=== PATIENT | male | born 1955 | race Hispanic/Latino ===

== ENCOUNTER 2019-04-19 08:35 | Observation (INO) | payer MEDICARE ==
--- NOTE | 2019-04-19 10:05 | Emergency Department Report ---
ED Chest Pain HPI - General Chief Complaint: Chest Pain Stated Complaint: LEG CRAMPS Source: patient, EMS, old records reviewed Mode of arrival: Stretcher Limitations: Other - History of Present Illness Initial Comments: 64-year-old male the past medical history of hypertension, stable angina, thyroid disease, and former smoker presents to the hospital complains of intermittent chest pain and leg cramps. Patient states symptoms since yesterday. He is having intermittent sternal pressure without aggravating or alleviating factors. Mild associated shortness of breath and nausea without vomiting. Patient also have entering cramps to bilateral legs also without aggravating or alleviating factors. Overall pain is rated 7/10 in intensity. Chest pain, leg cramps, and diaphoresis typically occur altogether. Patient reports a history of stable angina the states his last Cardiac workup with 10-20 years ago. He denies stents or CABG. He takes aspirin intermittently. Patient was just admitted to [facility] this morning after medical clearance from [facility] for the same physical complaints (leg cramps, sweating, dizzy since new year's). [facility] medical record provided by [facility] reviewed. Results include: Apr 16: trop neg, cr 1.38, ddimer pt had an elevated ddimer 04/18 CT angio chest that was neg for Pulmonary embolism or airspace diseae. + gallstones Patient is a [facility] for depression and suicidal ideation or plan to hang himself. Sitter at bedside. - Related Data Allergies Allergy/AdvReac Type Severity Reaction Status Date / Time codeine Allergy Rash Verified 04/19/19 12:48 Penicillins Allergy Rash Verified 04/19/19 12:48 Heart Score - HEART Score History: Moderately suspicious EKG: Non-specific Age: 45-65 Risk factors: > 3 risk factors or hx of atherosclerotic disease Troponin: < normal limit HEART Score: 5 ED Review of Systems ROS: Stated complaint: LEG CRAMPS Other details as noted in HPI Comment: All other systems reviewed and negative ED Past Medical Hx - Past Medical History Previous Medical History?: Yes Hx Hypertension: Yes Hx Psychiatric Treatment: Yes (depression, inpatient admission for SI) Hx COPD: Yes Additional medical history: Stable Angina. thryoid dz, erectile dysfucntion - Surgical History Past Surgical History?: Yes Additional Surgical History: B/L LE rods. L foot partial amputation - Social History Smoking Status: Former Smoker ED Physical Exam - General Limitations: Other - Other Other exam information: General: No acute distress Head: Atraumatic Eyes: normal appearance ENT: Moist mucous membranes Neck: Normal appearance, no midline tenderness Chest: Clear to auscultation bilaterally, mild upper mid chest wall tenderness CV: Regular rate and rhythm Abdomen: Soft, normal bowel sounds, nontender, nondistended, no rebound or guarding Back: Normal inspection Extremity: Normal inspection, full range of motion, no leg edema or asymmetry Neuro: Alert O x 3, no facial asymmetry, speech clear, no gross motor sensory deficit Psych: Appropriate behavior Skin: No rash ED Course Vital Signs 04/19/19 04/19/19 04/19/19 09:29 09:31 09:34 Temperature 98.4 F Pulse Rate 84 82 Respiratory 14 16 Rate Blood Pressure 142/80 142/80 Blood Pressure [Right] O2 Sat by Pulse 100 95 98 Oximetry 04/19/19 04/19/19 04/19/19 09:45 10:00 10:15 Temperature Pulse Rate 79 79 75 Respiratory 10 L 14 11 L Rate Blood Pressure 142/80 146/89 146/89 Blood Pressure 146/89 [Right] O2 Sat by Pulse 98 96 97 Oximetry 04/19/19 04/19/19 04/19/19 10:31 10:45 11:00 Temperature Pulse Rate Respiratory Rate Blood Pressure 146/89 146/89 146/89 Blood Pressure [Right] O2 Sat by Pulse 97 96 Oximetry 04/19/19 04/19/19 04/19/19 11:19 11:31 11:45 Temperature Pulse Rate 78 77 Respiratory 17 9 L Rate Blood Pressure 146/89 147/93 147/93 Blood Pressure 147/93 [Right] O2 Sat by Pulse 70 L 98 97 Oximetry 04/19/19 04/19/19 04/19/19 12:01 12:15 12:31 Temperature Pulse Rate 79 74 Respiratory 18 29 H Rate Blood Pressure 159/90 159/90 159/90 Blood Pressure [Right] O2 Sat by Pulse 96 98 96 Oximetry 04/19/19 04/19/19 04/19/19 12:45 13:00 13:15 Temperature Pulse Rate 78 75 82 Respiratory 20 22 15 Rate Blood Pressure 159/90 161/95 159/90 Blood Pressure [Right] O2 Sat by Pulse 98 96 96 Oximetry 04/19/19 04/19/19 13:31 13:45 Temperature Pulse Rate 85 80 Respiratory 13 11 L Rate Blood Pressure 159/90 159/90 Blood Pressure [Right] O2 Sat by Pulse 95 97 Oximetry - Reevaluation(s) Reevaluation #1: 04/19/19 12:38 pt had an episode in ed of diaphoresis. Fasciculations has cramps noted to leg muscles and hands. Patient also complained of generalized pain including chest pain. Hospitalist also at the bedside. Ativan 0.5 mg ordered. Repeat EKG still normal sinus without ST elevation. 04/19/19 13:57 ativan improved pt's muscle sx and diaphoresis MICHAEL score - Michael Score Age > 65: (0) No Aspirin use within the Past 7 Days: (0) No 3 or more CAD Risk Factors: (1) Yes 2 or more Angina events in past 24 hrs: (0) No Known CAD with more than 50% Stenosis: (0) No Elevated Cardiac Markers: (0) No ST Deviation Greater than 0.5mm: (0) No MICHAEL Score: 1 ED Medical Decision Making - Lab Data Result diagrams: 04/19/19 09:59 04/19/19 09:59 Lab Results 04/19/19 04/19/19 04/19/19 Range/Units 09:59 09:59 09:59 WBC 7.3 (4.5-11.0) K/mm3 RBC 4.48 (3.65-5.03) M/mm3 Hgb 12.5 (11.8-15.2) gm/dl Hct 36.7 (35.5-45.6) % MCV 82 L (84-94) fl MCH 28 (28-32) pg MCHC 34 (32-34) % RDW 14.3 (13.2-15.2) % Plt Count 319 (140-440) K/mm3 Lymph % (Auto) 19.5 (13.4-35.0) % [place] % (Auto) 9.0 H (0.0-7.3) % Eos % (Auto) 0.7 (0.0-4.3) % Baso % (Auto) 0.7 (0.0-1.8) % Lymph # 1.4 (1.2-5.4) K/mm3 [place] # 0.7 (0.0-0.8) K/mm3 Eos # 0.0 (0.0-0.4) K/mm3 Baso # 0.0 (0.0-0.1) K/mm3 Seg Neutrophils % 70.1 H (40.0-70.0) % Seg Neutrophils # 5.1 (1.8-7.7) K/mm3 PT 14.6 (12.2-14.9) Sec. INR 1.12 (0.87-1.13) Sodium 140 (137-145) mmol/L Potassium 4.2 (3.6-5.0) mmol/L Chloride 102.5 (98-107) mmol/L Carbon Dioxide 20 L (22-30) mmol/L Anion Gap 22 mmol/L BUN 18 (9-20) mg/dL Creatinine 1.3 (0.8-1.5) mg/dL Estimated GFR 56 ml/min BUN/Creatinine Ratio 14 % Glucose 110 H (75-100) mg/dL Calcium 10.0 (8.4-10.2) mg/dL Magnesium 2.30 (1.7-2.3) mg/dL Total Bilirubin 0.50 (0.1-1.2) mg/dL AST 26 (5-40) units/L ALT 14 (7-56) units/L Alkaline Phosphatase 94 (35-129) units/L Troponin T < 0.010 (0.00-0.029) ng/mL Total Protein 8.1 (6.3-8.2) g/dL Albumin 4.7 (3.9-5) g/dL Albumin/Globulin Ratio 1.4 % - EKG Data -: EKG Interpreted by Vt EKG shows normal: sinus rhythm - Radiology Data Radiology results: report reviewed CHEST 2 VIEWS INDICATION: Chest Pain. COMPARISON: None FINDINGS: Support devices: None. Heart: Within normal limits. Lungs/pleura: No acute air space or interstitial disease. No pneumothorax. Additional findings: None. IMPRESSION: No acute findings. DUPLEX DOPPLER LOWER EXTREMITY VEINS, BILATERAL INDICATION: b/l leg cramps. TECHNIQUE: Duplex doppler imaging was performed through the veins of both lower extremities using venous compression and other maneuvers. COMPARISON: No relevant prior imaging study available. FINDINGS: Right Common femoral vein: Negative. Right Superficial femoral vein: Negative. Right Popliteal vein: Negative. Right Calf veins: Negative. Left Common femoral vein: Negative. Left Superficial femoral vein: Negative. Left Popliteal vein: Negative. Left Calf veins: Negative. Additional findings: None.. IMPRESSION: 1. No sonographic evidence for DVT in either lower extremity. - Medical Decision Making plan to admit for further workup intermittent cramps with diaphoreris noted in ed. ativan provided + cp with neg trop and no stemi recent neg ct angio chest and doppler b/l neg for dvt - Differential Diagnosis mi, pe, electrolyte abnormalities, muscle cramps, med reaction Critical Care Time: No Critical care attestation.: If time is entered above; I have spent that time in minutes in the direct care of this critically ill patient, excluding procedure time. ED Disposition Clinical Impression: Chest pain, Muscle cramps, Depression, Suicidal ideation Disposition: -09 OP ADMIT IP TO THIS HOSP Is pt being admited?: Yes Condition: Stable Time of Disposition: 12:45
[2019-04-19 10:18] LABS: Basophils % (Auto) 0.7 % (0.0-1.8); Eosinophils % (Auto) 0.7 % (0.0-4.3); Hematocrit 36.7 % (35.5-45.6); Hemoglobin 12.5 gm/dl (11.8-15.2); Lymphocytes # (Auto) 1.4 K/mm3 (1.2-5.4); Lymphocytes % (Auto) 19.5 % (13.4-35.0); Mean Corpuscular HGB Conc 34 % (32-34); Mean Corpuscular Volume 82 fl (84-94); Monocytes # (Auto) 0.7 K/mm3 (0.0-0.8); Platelet Count 319 K/mm3 (140-440); Red Blood Count 4.48 M/mm3 (3.65-5.03); Red Cell Distribution Width 14.3 % (13.2-15.2)
[2019-04-19 10:24] LABS: INR 1.12 (0.87-1.13)
[2019-04-19 10:43] LABS: Alanine Aminotransferase 14 units/L (7-56); Albumin 4.7 g/dL (3.9-5); BUN/Creatinine Ratio 14; Blood Urea Nitrogen 18 mg/dL (9-20); Hemolysis Index 4
--- NOTE | 2019-04-19 10:44 | XRay Report ---
CHEST 2 VIEWS INDICATION: Chest Pain. COMPARISON: None FINDINGS: Support devices: None. Heart: Within normal limits. Lungs/pleura: No acute air space or interstitial disease. No pneumothorax. Additional findings: None. IMPRESSION: No acute findings. Signer Name: Dameon Mata Jr, MD Signed: 04/19/2019 10:40 AM Workstation Name: [id number]
--- NOTE | 2019-04-19 11:29 | Vascular Lab Report ---
DUPLEX DOPPLER LOWER EXTREMITY VEINS, BILATERAL INDICATION: b/l leg cramps. TECHNIQUE: Duplex doppler imaging was performed through the veins of both lower extremities using venous divya booker and other maneuvers. COMPARISON: No relevant prior imaging study available. FINDINGS: Right Common femoral vein: Negative. Right Superficial femoral vein: Negative. Right Popliteal vein: Negative. Right Calf veins: Negative. Left Common femoral vein: Negative. Left Superficial femoral vein: Negative. Left Popliteal vein: Negative. Left Calf veins: Negative. Additional findings: None.. IMPRESSION: 1. No sonographic evidence for DVT in either lower extremity. Signer Name: Yonny Mae MD Signed: 04/19/2019 11:24 AM Workstation Name: [id number]
[2019-04-19] MEDS ORDERED: LORazepam 2 MG/ML VIAL IV ONE (12:36)
[2019-04-19] MEDS ORDERED: ASPIRIN 325 MG TAB PO ONE (12:41)
[2019-04-19] MEDS ORDERED: ONDANSETRON 4 MG/2 ML INJ IV PRN (12:43)
[2019-04-19] MEDS ORDERED: ACETAMINOPHEN 325 MG TAB PO PRN (12:43)
[2019-04-19] MEDS ORDERED: ASPIRIN 81 MG TAB CHEW PO STA (12:43)
[2019-04-19] MEDS ORDERED: ALBUTEROL 2.5 MG/3 ML NEBU IH PRN (12:43)
--- NOTE | 2019-04-19 12:43 | History and Physical Report ---
History of Present Illness Chief complaint: My chest is hurting real bad History of present illness: 64-year-old male with HTN, depression, COPD, chronic stable angina, hypothyroidism, currently an inpatient at [facility] for suicidal ideation with [address] upon arrival. Patient presents to ED for evaluation. Patient states that he has experienced pain in his chest over the past 1 day with progressively worsening symptoms over the past 6 hours. Patient states that pain is 7/10, crushing in nature, "feels like someone is sitting on my chest", worse with exertion, not relieved with rest, associated with diaphoresis, associated with shortness of breath. EMS notified, and upon arrival the patient was found to be in distress. Patient transported to [facility] for further care and evaluation. Patient seen and evaluated in the emergency department. Patient lab and imaging studies reviewed. Patient found to have symptoms consistent with diastolic CHF, as well as angina. Patient placed in observation status and admitted to telemetry for medical stabilization due to risk increased risk of cardiac decompensation. At time of exam, the patient is diaphoretic, sitting up in bed, rubbing his chest with his left hand, and states that it is hard to breathe. Patient was seen and evaluated at outside hospital and underwent CT angio of the chest which was negative for pulmonary embolus. Cardiology team consulted in ED. No prior admission for review. Patient denies fever, chills, palpitations, trauma, hemoptysis, unilateral leg swelling, individual/family history of DVT/PE/bleeding or blood clotting disorders. All medication listed at time of admission has been reconciled. Past History Past Medical History: COPD, hypertension, other (see hpi) Past Surgical History: Other (Leg surgery. Partial left foot amputation) Social history: . denies: smoking, alcohol abuse, prescription drug abuse Family history: CAD, hypertension Medications and Allergies Allergies Allergy/AdvReac Type Severity Reaction Status Date / Time codeine Allergy Rash Verified 04/19/19 12:48 Penicillins Allergy Rash Verified 04/19/19 12:48 Review of Systems Constitutional: no weight loss, no weight gain, no fever, no chills Ears, nose, mouth and throat: no ear pain, no ear discharge, no tinnitis, no nose pain, no nasal discharge Cardiovascular: chest pain, shortness of breath, dyspnea on exertion, high blood pressure, decreased exercise tolerance Respiratory: no cough, no cough with sputum, no excessive sputum, no hemoptysis Gastrointestinal: no abdominal pain, no nausea, no vomiting, no diarrhea Genitourinary Male: no hematuria, no flank pain, no discharge, no urinary frequency, no urinary hesitancy Rectal: no pain, no incontinence, no bleeding Musculoskeletal: no neck stiffness, no neck pain, no arm numbness/tingling, no low back pain, no leg numbness/tingling Integumentary: no rash, no pruritis, no redness, no sores, no wounds Neurological: no paralysis, no weakness, no parathesias, no numbness, no tingling, no seizures Psychiatric: no memory loss, no change in sleep habits, no sleep disturbances, no insomnia, no hypersomnia, no change in appetite Endocrine: no cold intolerance, no heat intolerance, no polyphagia, no polydipsia, no nocturia Hematologic/Lymphatic: no easy bruising, no easy bleeding, no lymphadenopathy Allergic/Immunologic: no urticaria, no allergic rhinitis, no persistent infections Exam - Constitutional Vitals: Temp Pulse Resp BP Pulse Ox 98.4 F 80 16 147/93 97 04/19/19 09:34 04/19/19 11:45 04/19/19 11:45 04/19/19 11:45 04/19/19 11:45 General appearance: Present: no acute distress, other (Diaphoretic, clutching his chest with his left hand, leaning forward in bed, using accessory muscles to breathe,) - EENT Eyes: Present: PERRL ENT: hearing intact, clear oral mucosa - Neck Neck: Present: supple, normal ROM - Respiratory Respiratory effort: labored, accessory muscle use Respiratory: bilateral: diminished, rhonchi - Cardiovascular Heart Sounds: Present: S1 & S2. Absent: rub, click - Extremities Extremities: pulses symmetrical, No edema Peripheral Pulses: within normal limits - Abdominal General gastrointestinal: Present: soft, non-tender, non-distended, normal bowel sounds Male genitourinary: Present: normal - Integumentary Integumentary: Present: clear, warm, dry - Musculoskeletal Musculoskeletal: gait normal, strength equal bilaterally - Psychiatric Psychiatric: appropriate mood/affect, intact judgment & insight, agitated - Neurologic Neurologic: CNII-XII intact, moves all extremities Results - Labs CBC & Chem 7: 04/19/19 09:59 04/19/19 09:59 Labs: Abnormal lab results 04/19/19 04/19/19 Range/Units 09:59 09:59 MCV 82 L (84-94) fl [place] % (Auto) 9.0 H (0.0-7.3) % Seg Neutrophils % 70.1 H (40.0-70.0) % Carbon Dioxide 20 L (22-30) mmol/L Glucose 110 H (75-100) mg/dL Assessment and Plan - Patient Problems (1) Angina at rest Current Visit: Yes Status: Acute Plan to address problem: Serial cardiac enzymes, EKG, telemetry, stress test, cardiology consulted in ED, morphine, supplemental oxygen, nitro, aspirin. (2) Diastolic CHF Current Visit: Yes Status: Acute Qualifiers: Heart failure chronicity: acute Qualified Code(s): I50.31 - Acute diastolic (congestive) heart failure Plan to address problem: Strict I's/O, daily weight, BNP, echo, thyroid panel, magnesium level, supplemental oxygen, pulse oximetry, afterload reduction, chest x-ray, cardiol ogy consulted in ED (3) Suicide ideation Current Visit: Yes Status: Acute Plan to address problem: [address], psychiatry consulted in ED. (4) HTN (hypertension) Current Visit: Yes Status: Acute Qualifiers: Hypertension type: essential hypertension Qualified Code(s): I10 - E ssential (primary) hypertension Plan to address problem: Monitor blood pressure every shift continue medical management. (5) COPD (chronic obstructive pulmonary disease) Current Visit: Yes Status: Acute Qualifiers: Chronic bronchitis type: mixed simple and mucopurulent Plan to address problem: Supplemental oxygen, nebulizer therapy, pulse oximetry, noninvasive positive pressure ventilation as clinically indicated, chest x-ray (6) DVT prophylaxis Current Visit: Yes Status: Acute Plan to address problem: SCD to bilateral lower extremities while in bed, prophylactic heparin.
[2019-04-19 13:35] LABS: Chol/HDL Ratio 3.12 %; HDL Cholesterol 48 mg/dL (40-59); LDL Cholesterol,Direct 95 mg/dL (50-130)
[2019-04-19 16:33] LABS: Free T4 (Free Thyroxine) 1.46 ng/dL (0.76-1.46)
[2019-04-19] MEDS ORDERED: MORPHINE 2 MG/1 ML INJ ONE (18:03)
[2019-04-19] MEDS: MORPHINE 2 MG/1 ML INJ IV PRN (18:04)
[2019-04-19] MEDS ORDERED: hydrALAZINE 20 MG/1 ML INJ IV PRN (22:55)
[2019-04-19] MEDS: HEPARIN 5,000 UNIT/1 ML VIAL SUB-Q SCH (23:36)
[2019-04-20] MEDS ORDERED: REGADENOSON 0.4 MG/5 ML INJ IV ONE ×2 (08:24→08:30)
[2019-04-20] MEDS: HEPARIN 5,000 UNIT/1 ML VIAL SUB-Q SCH (10:57)
[2019-04-20] MEDS: MORPHINE 2 MG/1 ML INJ IV PRN (11:01)
--- NOTE | 2019-04-20 15:42 | Discharge Summary ---
Providers - Providers Date of Admission: 04/19/19 12:43 Attending physician: CHELO MAZA 04/19/19 Consult to Cardiac Rehabilitation [CONS] Routine Reason For Exam: Phase I 04/19/19 12:43 Consult to Cardiology [CONS] Routine Consulting Provider: MOJGAN ORTIZ Reason For Exam: angina/chf Hospitalization Condition: Stable - Discharge Diagnoses (1) Angina at rest Status: Acute (2) Diastolic CHF Status: Acute Qualifiers: Heart failure chronicity: acute Qualified Code(s): I50.31 - Acute diastolic (congestive) heart failure (3) Suicide ideation Status: Acute (4) HTN (hypertension) Status: Acute Qualifiers: Hypertension type: essential hypertension Qualified Code(s): I10 - Essential (primary) hypertension (5) COPD (chronic obstructive pulmonary disease) Status: Acute Qualifiers: Chronic bronchitis type: mixed simple and mucopurulent (6) DVT prophylaxis Status: Acute Exam - Constitutional Vitals: Temp Pulse Resp BP Pulse Ox 97.7 F 63 18 137/85 98 04/20/19 04:36 04/20/19 08:00 04/20/19 07:41 04/20/19 10:18 04/20/19 07:41 Plan
[2019-04-20 18:07] VITALS: BP 136/75
--- NOTE | 2019-04-21 10:14 | Treadmill Report ---
THALLIUM STRESS TEST LEFT VENTRICLE: Left ventricular chamber size is within normal spread. Perfusion study demonstrates a small fixed basal inferior defect with no significant reversibility on the resting study. Gated analysis demonstrates normal left ventricular systolic function, ejection fraction 73%. CONCLUSION: Small fixed basal inferior defect of moderate intensity consistent with diaphragmatic attenuation artifact. There is no reversible ischemia demonstrated on this study. Clinical correlation is recommended. JOB# [id number] CA/NTS
== END 2019-04-20 18:52 ==
LOC: ED 08:35 → 4A 12:43
PROVIDERS: ADMIT Internal Medicine; ATTEND Internal Medicine
DX: I20.8 Other forms of angina pectoris (principal); I11.0 Hypertensive heart disease with heart failure; I50.30 Unspecified diastolic (congestive) heart failure; J44.9 Chronic obstructive pulmonary disease, unspecified; R45.851 Suicidal ideations; E03.9 Hypothyroidism, unspecified; F32.9 Major depressive disorder, single episode, unspecified; R25.2 Cramp and spasm; Z87.891 Personal history of nicotine dependence; Z79.899 Other long term (current) drug therapy; Z88.0 Allergy status to penicillin; Z88.5 Allergy status to narcotic agent
CPT/HCPCS: 36415; 71046; 78452; 80053; 80061; 83735; 83880; 84439; 84443; 84484; 85025; 85610; 87116; 93005; 93010; 93017; 93306; 93970; 96372; 96374; 96375; 96376; 99284; A9502; G0378; J1644; J2060; J2270; J2785

== ENCOUNTER 2019-04-21 13:44 | Emergency (ER) | payer MEDICARE ==
[2019-04-21] MEDS ORDERED: LORazepam 2 MG/ML VIAL IV ONE (14:59)
[2019-04-21] MEDS ORDERED: levETIRAcetam 500 MG TAB PO ONE (14:59)
[2019-04-21 15:00] VITALS: BP 135/80
--- NOTE | 2019-04-21 15:08 | Emergency Department Report ---
ED General Adult HPI - General Chief complaint: Seizure Stated complaint: CONVULSIONS Time Seen by Provider: 04/21/19 14:57 Source: patient, EMS Mode of arrival: Stretcher Limitations: No Limitations - History of Present Illness Initial comments: The patient presents to the emergency department from [place] for seizure- like activity. The patient was recently diagnosed with seizures and has not had his seizure medication. The Patient states when he has his seizures he is able to hear everyone speaking around him and denies a confused state after the seizure. -: Sudden Severity scale (0 -10): 0 Consistency: now resolved Improves with: none Worsens with: none Associated Symptoms: denies other symptoms Treatments Prior to Arrival: none - Related Data Previous Rx's Medication Instructions Recorded Last Taken Type levETIRAcetam [Keppra TAB] 500 mg PO BID #20 tablet 04/21/19 Unknown Rx Allergies Allergy/AdvReac Type Severity Reaction Status Date / Time codeine Allergy Rash Verified 04/19/19 12:48 Penicillins Allergy Rash Verified 04/19/19 12:48 ED Review of Systems ROS: Stated complaint: CONVULSIONS Other details as noted in HPI Comment: All other systems reviewed and negative Constitutional: denies: chills, fever Eyes: denies: eye pain, eye discharge, vision change ENT: denies: ear pain, throat pain Respiratory: denies: cough, shortness of breath, wheezing Cardiovascular: denies: chest pain, palpitations Endocrine: no symptoms reported Gastrointestinal: denies: abdominal pain, nausea, diarrhea Genitourinary: denies: urgency, dysuria Musculoskeletal: denies: back pain, joint swelling, arthralgia Skin: denies: rash, lesions Neurological: denies: headache, weakness, paresthesias Psychiatric: denies: anxiety, depression Hematological/Lymphatic: denies: easy bleeding, easy bruising ED Past Medical Hx - Past Medical History Hx Hypertension: Yes Hx Heart Attack/AMI: No Hx Congestive Heart Failure: No Hx Diabetes: No Hx Deep Vein Thrombosis: No Hx Pulmonary Embolism: No Hx Psychiatric Treatment: Yes (depression, inpatient admission for SI) Hx Asthma: No Hx COPD: Yes Hx Tuberculosis: No Additional medical history: Stable Angina. thryoid dz, erectile dysfucntion - Surgical History Hx Coronary Stent: No Hx Pacemaker: No Hx Internal Defibrillator: No Additional Surgical History: B/L LE rods. L foot partial amputation - Social History Smoking Status: Former Smoker Substance Use Type: None - Medications Home Medications: Home Medications Medication Instructions Recorded Confirmed Last Taken Type levETIRAcetam [Keppra TAB] 500 mg PO BID #20 tablet 04/21/19 Unknown Rx ED Physical Exam - General Limitations: No Limitations General appearance: alert, in no apparent distress - Head Head exam: Present: atraumatic, normocephalic - Eye Eye exam: Present: normal appearance, PERRL, EOMI - ENT ENT exam: Present: mucous membranes moist - Neck Neck exam: Present: normal inspection - Respiratory Respiratory exam: Present: normal lung sounds bilaterally. Absent: respiratory distress - Cardiovascular Cardiovascular Exam: Present: regular rate, normal rhythm. Absent: systolic murmur, diastolic murmur, rubs, gallop - GI/Abdominal GI/Abdominal exam: Present: soft, normal bowel sounds - Rectal Rectal exam: Present: deferred - Extremities Exam Extremities exam: Present: normal inspection - Back Exam Back exam: Present: normal inspection - Neurological Exam Neurological exam: Present: alert, oriented X3, CN II-XII intact. Absent: motor sensory deficit - Psychiatric Psychiatric exam: Present: normal affect, normal mood - Skin Skin exam: Present: warm, dry, intact, normal color. Absent: rash ED Course Vital Signs 04/21/19 14:52 Pulse Rate 80 Blood Pressure 135/80 [Left] O2 Sat by Pulse 99 Oximetry ED Medical Decision Making - Medical Decision Making She given Keppra and Ativan There are no signs of incontinence on exam Critical care attestation.: If time is entered above; I have spent that time in minutes in the direct care of this critically ill patient, excluding procedure time. ED Disposition Clinical Impression: Observed seizure-like activity, Convulsions Disposition: DC-01 TO HOME OR SELFCARE Is pt being admited?: No Does the pt Need Aspirin: No Condition: Fair Instructions: Recurrent Seizures Adult (ED) Additional Instructions: return if worse Prescriptions: levETIRAcetam [Keppra TAB] 500 mg PO BID #20 tablet Referrals: SUSAN SUAZO MD [Primary Care Provider] - 3-5 Days Time of Disposition: 15:04
== END 2019-04-21 18:05 | disposition home or self-care (01) ==
LOC: ED 13:44
DX: G40.909 Epilepsy, unspecified, not intractable, without status epilepticus (principal); I10 Essential (primary) hypertension; F32.9 Major depressive disorder, single episode, unspecified; J44.9 Chronic obstructive pulmonary disease, unspecified; Z98.890 Other specified postprocedural states; Z87.891 Personal history of nicotine dependence; Z79.899 Other long term (current) drug therapy; Z88.0 Allergy status to penicillin; Z88.4 Allergy status to anesthetic agent
CPT/HCPCS: 96374; 99283; J2060